=== PATIENT | female | born 1980 | race Caucasian/White ===

== ENCOUNTER → 2020-06-11 | Outpatient (CLI) | payer BC ==
[~2020-06-11] MED LIST: IBUP80TA PO; MAPA500T2 PO; VITAPRTA PO
--- NOTE | 2020-06-29 13:58 | REP ---
FIRST TRIMESTER OBSTETRICAL ULTRASOUND CLINICAL: Dating and viability. TECHNIQUE: Transabdominal obstetrical ultrasound with color Doppler evaluation. FINDINGS: Ultrasound examination demonstrates single live early intrauterine . Gestational sac with yolk sac and pole identified. Pump Back-rump length (CRL) of 12 mm corresponds to 7 weeks 3 days gestational age with estimated date of delivery 01/25/2021. heart rate (FHR) equals 141 beats per minute. A subchorionic hemorrhagic inferior to the gestational sac is identified measuring 25 x 19 x 31 mm. IMPRESSION: * Single live intrauterine measuring 7 weeks 3 days gestational age. Complete anatomical assessment should be performed at 19-20 weeks. * Moderate subchorionic hemorrhagic. MTDD
== END ==
LOC: M RAD 09:11
PROVIDERS: ATTEND Obstetrics & Gynecology
DX: O36.80X0 Pregnancy with inconclusive fetal viability, not applicable or unspecified (principal); Z3A.01 Less than 8 weeks gestation of pregnancy

== ENCOUNTER → 2020-09-06 | Outpatient (CLI) | payer BC ==
--- NOTE | 2020-09-06 14:25 | REP ---
INDICATION: ENCOUNTER FOR SUPRVSN OF NORMAL SECOND TRIMESTER. COMPARISON: None. TECHNIQUE: Multiple real-time ultrasonographic images. FINDINGS: There is a single intrauterine gestation in a transverse lie. The placenta is posterior, grade 1, without previa. The cervix measures 5.6 cm in length. The heart rate is 146 beats per minute. The composite ultrasound gestational age is 21 weeks 1 day with an NIRAV of 01/23/2021. Gestational age by the 1st ultrasound is 19 weeks 6 days with an NIRAV of 01/25/2021. Gestational age by LMP is 21 weeks 4 days with an NIRAV of 01/13/2021. Estimated weight is 330 g, 0 lb-11 oz. The following anatomic structures are identified and are unremarkable: Intracranial ventricles, choroid plexus, cerebellum, cisterna magna, facial profile, orbits, upper lip, lungs, cardiac rhythm, diaphragm, stomach, abdominal wall, right and left kidneys, bladder, spine, right and left upper extremities, right left lower extremities, 3 vessel cord. Suboptimally demonstrated because of position are: Four-chamber view of the heart and the cardiac right left ventricular outflow tracts. A follow-up study dedicated to the structures might be considered. IMPRESSION: Single intrauterine gestation as described. <Electronically signed by Jb Badillo > 09/06/20 [id number]
== END ==
LOC: M RAD 11:10
PROVIDERS: ATTEND Obstetrics & Gynecology
DX: Z34.82 Encounter for supervision of other normal pregnancy, second trimester (principal); Z3A.19 19 weeks gestation of pregnancy

== ENCOUNTER → 2020-10-04 | Outpatient (CLI) | payer BC ==
--- NOTE | 2020-10-04 11:05 | REP ---
INDICATION: F/U ANATOMY COMPARISON: 09/06/2020 TECHNIQUE: Transabdominal obstetrical ultrasound with color Doppler evaluation. FINDINGS: Examination demonstrates a single live intrauterine in breech presentation. motion is identified by technologist. Placenta is noted posterior and grade 1 without evidence for placenta previa or abruption. Amniotic fluid volume is normal. Cervix measures 4.7 cm in length and appears closed.. Gestational age by LMP 25 weeks 4 days with NIRAV 01/13/2021. Gestational age by current measurements 23 weeks 2 days with NIRAV 01/29/2021. FHR equals 150 beats per minute. Estimated weight 555 grams (12thpercentile based on age by 1st ultrasound at 23 weeks 6 days). Anatomical assessment demonstrates normal structures including cranium, facial profile, four-chamber heart/ventricular outflow tracts, diaphragm, stomach, kidneys, bladder and 3 vessel cord. IMPRESSION: Single live intrauterine in breech presentation demonstrating appropriate estimated weight and growth when compared with 1st ultrasound. In conjunction with prior examination anatomical assessment is complete and normal. <Electronically signed by Luis M Rehman > 10/04/20 [id number]
== END ==
LOC: M WHC 10:14
PROVIDERS: ATTEND Obstetrics & Gynecology
DX: Z36.9 Encounter for antenatal screening, unspecified (principal); Z3A.23 23 weeks gestation of pregnancy

== ENCOUNTER → 2020-11-06 | Outpatient (CLI) | payer BC ==
[2020-11-06 10:24] LABS: CHOLESTEROL RISK RATIO 4.454 (<5); THYROID STIMULATING HORMONE 1.79 uIU/ML (0.358-3.740)
== END ==
LOC: M LAB 08:35
PROVIDERS: ATTEND Internal Medicine Cardiovascular Disease
DX: R07.2 Precordial pain (principal); R00.2 Palpitations

== ENCOUNTER → 2020-11-06 | Outpatient (CLI) | payer BC ==
[2020-11-06 10:53] LABS: HEMATOCRIT 37.3 % (36.0-47.0); HEMOGLOBIN 11.8 g/dl (12.0-15.5); MEAN CORPUSCULAR HEMOGLOBIN 28.8 pg (27.0-33.0); MEAN CORPUSCULAR HGB CONC 31.6 g/dl (32.0-36.5); PLATELET COUNT, AUTOMATED 182 10^3/uL (150-450); WHITE BLOOD COUNT 6.6 10^3/uL (4.0-10.0)
== END ==
LOC: M LAB 08:37
PROVIDERS: ATTEND Obstetrics & Gynecology
DX: Z34.92 Encounter for supervision of normal pregnancy, unspecified, second trimester (principal)

== ENCOUNTER → 2020-11-14 | Outpatient (CLI) | payer BC ==
--- NOTE | 2020-11-20 15:57 | SLEEPHOME ---
DATE: 11/14/2020 ORDERED BY: Dr. Berg Diagnostic home sleep testing was performed due to concern for the obstructive sleep apnea syndrome. For testing, a nocturnal T3 respiratory monitoring device was used. Continuous record was made of pulse, oxygen saturation, air flow, chest and abdominal strain, and body position. There was 11 hours and 59 minutes of data reviewed. There was 7 hours and 18 minutes marked as time in bed. During the interval marked time in bed, there were 146 respiratory events identified of 10 seconds in duration or greater for a respiratory event index of 20. The events were primarily obstructive. Four mixed and central apneas were noted. Baseline pulse rate was 74. Pulse rate ranged between 60-109. Baseline saturation was 95%. Saturations fell as low as 78%, and the oxygen desaturation index was 10.5. Events were seen in both the supine and nonsupine positions. IMPRESSION: Abnormal home sleep testing with repetitive respiratory events and oxygen desaturations to 78% with a respiratory event index of 20 is consistent with the obstructive sleep apnea syndrome. RECOMMENDATION: The patient should be encouraged to undergo referral for formal sleep evaluation.
== END ==
LOC: M SLEEP HO 10:06
PROVIDERS: ATTEND Internal Medicine Cardiovascular Disease
DX: G47.33 Obstructive sleep apnea (adult) (pediatric) (principal)

== ENCOUNTER → 2020-11-26 | Outpatient (CLI) | payer BC | LOC: M LAB 08:05 | PROVIDERS: ATTEND Obstetrics & Gynecology | DX: R73.02 Impaired glucose tolerance (oral) (principal) ==

== ENCOUNTER 2021-01-04 15:19 | Emergency (ER) | payer BC ==
[~2021-01-04] VITALS: Ht 157.5 cm; Wt 112.6 kg
[2021-01-04 15:20] VITALS: BP 160/85
== END 2021-01-04 15:40 | disposition admitted as inpatient to this hospital (09) ==
LOC: M ED 15:19
DX: Z53.29 Procedure and treatment not carried out because of patient's decision for other reasons (principal)

== ENCOUNTER 2021-01-04 15:48 | Outpatient (CLI) | payer BC ==
[~2021-01-04] VITALS: Ht 157.5 cm; Wt 112.0 kg
[2021-01-04 16:30] VITALS: BP 138/90
[2021-01-04 16:47] VITALS: BP 132/88
[2021-01-04 16:52] VITALS: BP 138/90
[2021-01-04 17:15] VITALS: BP 132/88
[2021-01-04 17:30] LABS: HEMATOCRIT 37.6 % (36.0-47.0); HEMOGLOBIN 12.2 g/dl (12.0-15.5); MEAN CORPUSCULAR HGB CONC 32.4 g/dl (32.0-36.5); MEAN CORPUSCULAR VOLUME 89.3 fl (80.0-96.0); PLATELET COUNT, AUTOMATED 159 10^3/uL (150-450); RED BLOOD COUNT 4.21 10^6/uL (4.00-5.40); WHITE BLOOD COUNT 7.3 10^3/uL (4.0-10.0)
[2021-01-04 17:50] VITALS: BP 115/72
[2021-01-04 17:56] LABS: CREATININE,RANDOM URINE 21.9 MG/DL; TOTAL PROTEIN,RANDOM URINE 6.3 MG/DL (0.0-12.0)
[2021-01-04 17:57] LABS: ALT/SGPT 20 U/L (12-78); BILIRUBIN,TOTAL 0.2 MG/DL (0.2-1.0); CREATININE FOR GFR 0.41 MG/DL (0.55-1.30); GLOMERULAR FILTRATION RATE > 60.0 (>60); LDH LACTATE DEHYDROGENASE 163 U/L (84-246); URIC ACID 3.4 MG/DL (2.6-6.0)
--- NOTE | 2021-01-04 18:21 | IPNPDOC ---
Text Note Date of Service The patient was seen on 01/04/21. NOTE Outpatient 40yo NIRAV 01/25/2021. Presents @ 37 wks with complaints of lower extremity edema. Denies headache, visual disturbances, chest pain, SHEY. Reports good movement. 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 No distress, normotensive Cat I tracing 2+ pitting edema to knees Labs WNL, urine ratio 0.28 Reviewed status with patient. Discharged home. Rec she wear compression stockings at work, rest side lying BID. Pt verbalized understanding. Keep next appt VS,Fishbone, I+O VS, Fishbone, I+O Laboratory Tests 01/04/21 17:18 Vital Signs Date Time Temp Pulse Resp B/P (MAP) Pulse Ox O2 Delivery O2 Flow Rate FiO2 01/04/21 17:50 64 18 115/72 (86) 01/04/21 16:30 99.3 99 Room Air Esperanza Sadler CNM Jan 04, 2021 18:21
== END 2021-01-04 18:35 | disposition home or self-care (01) ==
LOC: M LDO 15:48
PROVIDERS: ATTEND Advanced Practice Midwife
DX: O26.893 Other specified pregnancy related conditions, third trimester (principal); R03.0 Elevated blood-pressure reading, without diagnosis of hypertension; Z3A.37 37 weeks gestation of pregnancy; R22.43 Localized swelling, mass and lump, lower limb, bilateral; O09.523 Supervision of elderly multigravida, third trimester
CPT/HCPCS: 36415; 59025; 82247; 82565; 82570; 83615; 84156; 84450; 84460; 84550; 85027; G0378; G0463

== ENCOUNTER → 2021-01-10 | Outpatient (REF) | payer BC | LOC: M LAB REF 15:38 | PROVIDERS: ATTEND Advanced Practice Midwife | DX: Z36.89 Encounter for other specified antenatal screening (principal) ==

== ENCOUNTER → 2021-01-16 | Outpatient (CLI) | payer BC ==
[2021-01-16 10:38] LABS: ALBUMIN 2.7 GM/DL (3.2-5.2); BLOOD UREA NITROGEN 12 MG/DL (7-18); CALCIUM LEVEL 8.8 MG/DL (8.5-10.1); CARBON DIOXIDE LEVEL 21 MEQ/L (21-32); CHLORIDE LEVEL 104 MEQ/L (98-107); GLOMERULAR FILTRATION RATE > 60.0 (>60); GLUCOSE, FASTING 105 MG/DL (70-100); PHOSPHORUS LEVEL 2.9 MG/DL (2.5-4.9); SODIUM LEVEL 137 MEQ/L (136-145)
[2021-01-16 10:39] LABS: MAGNESIUM LEVEL 1.9 MG/DL (1.8-2.4)
== END ==
LOC: M LAB 09:17
PROVIDERS: ATTEND Internal Medicine Cardiovascular Disease
DX: R60.0 Localized edema (principal)

== ENCOUNTER 2021-01-26 18:18 | Inpatient (IN) | payer BC ==
[2021-01-26] VITALS (11 sets, daily range): BP systolic 107–152; BP diastolic 52–73
[~2021-01-26] VITALS: Ht 157.5 cm; Wt 106.1 kg
[2021-01-26] MEDS ORDERED: CHLO125TA PO (18:37)
[2021-01-26] MEDS ORDERED: LABE100T4 PO (18:37)
[2021-01-26] MEDS ORDERED: POTA10CA32 PO ×2 (18:37)
[2021-01-26] MEDS ORDERED: TUMS750C5 PO (18:40)
[2021-01-26] MEDS ORDERED: LACTATED RINGER'S 1000 ML IV STA (18:41)
[2021-01-26] MEDS ORDERED: LR 1,000 ML IV SCH (18:45)
[2021-01-26] MEDS ORDERED: LIDOCAINE 1% MDV 50ML VIAL As Ordered ONE (18:56)
[2021-01-26] MEDS ORDERED: ACETAMINOPHEN 500 MG TAB PO PRN (19:15)
[2021-01-26] MEDS ORDERED: DIBUCAINE 1% OINTMENT 30GM TOP PRN (19:15)
[2021-01-26] MEDS ORDERED: MEASLES,MUMPS,RUBELLA VACCINE INJ (MMR-II) (90707) SC SCH (19:15)
[2021-01-26] MEDS ORDERED: PROMETHAZINE 25 MG TAB PO PRN (19:15)
[2021-01-26] MEDS ORDERED: ACETAMINOPHEN TAB 650MG DOSE (2X325MG) PO PRN (19:15)
[2021-01-26] MEDS ORDERED: METHYLERGONOVINE MALEATE 0.2 MG TAB PO PRN (19:15)
[2021-01-26] MEDS ORDERED: IBUPROFEN 600MG TAB PO PRN (19:15)
[2021-01-26] MEDS ORDERED: DOCUSATE SODIUM 100MG CAPSULE PO PRN (19:15)
[2021-01-26] MEDS ORDERED: RHOGAM 300 MCG (1500 IU) INJ (J2790) IM SCH (19:15)
--- NOTE | 2021-01-26 19:22 | HPEPDOC ---
Obstetrical History & Physical General Date of Admission January 26, 2021 at 18:43 History of Present Illness 41-year-old G2, P1001 at 40+0 weeks gestation. Presents with frequent, painful uterine contractions over the past several hours. Denies any loss of fluid or vaginal bleeding. Reports regular movement. ROS: no CONTE, cp, sob, fever/chills/nausea/vomiting. course: Advanced maternal age PMH: None SH:. 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 STI or dysplasia OB: G1 March 2018, 39+5 weeks gestation, , uncomplicated Sochx: No tobacco, alcohol or drug use FamHx: Heart disease, hypertension, nephrolithiasis labs: Blood type, a positive, antibody screen negative, HepBsAg neg, HIV neg, rubella immune, Hep C antibody negative, RPR nonreactive, CT/GC neg, urine culture negative, 1 hour glucose challenge test 151, 3 hour: 92, and 199, 173, 130 within normal limits, GBS negative imaging: no anomalies or placental abnormalities Past Medical History Allergies Coded Allergies: No Known Allergies (Unverified , 07/02/15) Medications Scheduled Chlorthalidone (Chlorthalidone) 25 Mg Tablet, 12.5 TAB PO DAILY Labetalol HCl (Labetalol HCl) 100 Mg Tablet, 1 TAB PO BID Multivit/Min/Pren/Fol Ac/Iron ( Vitamin Plus Low Iron) 1 Tab Tab, 1 TAB PO DAILY Potassium Chloride (Potassium Chloride) 10 Meq Capsule.er, 1 CAP PO BID Scheduled PRN Acetaminophen (Mapap) 500 Mg Tab, 1,000 MG PO Q6HP PRN for MILD PAIN (PS 1-4) Calcium Carbonate (Tums) 300 Mg Tab.chew, 750 MG PO Q6HP PRN for INDIGESTION Physical Examination Physical Examination GENERAL: Alert and oriented times three. ABDOMEN: Gravid and non-tender to touch. FETUS: Is vertex (VTX) by sterile vaginal examination (SVE), fetus is vertex (VTX) by Abad. HEART RATE: Regular rate and rhythm. LUNGS: Clear to auscultation (CTA). EXTREMITIES: No edema. No clonus. SVE: 10cm, 100%, +2 station, bulging membranes. EFM: Cat I [place]: ctxs every 2-4min. Laboratory Data 24H LABS Laboratory Tests 2 01/26/21 18:52: Serology Scanned Report Hepatitis B Testing Assessment/Plan Assessment 41yo at 40+0 weeks. Active labor/second stage. Reassuring maternal and status. Plan Admit and orient. Drug Purchaser and consent. Labs and intravenous (IV) per unit protocol. Anticipate GLENROY SIERRA DO January 26, 2021 19:22
[2021-01-26] MEDS ORDERED: OXYTOCIN INJ 10 UNITS/ML VIAL (J2590) IM PRN (19:25)
[2021-01-26] MEDS ORDERED: LIDOCAINE 1% MDV 20ML VIAL INFIL PRN (19:25)
--- NOTE | 2021-01-26 19:30 | DNPDOC ---
[facility] Delivery Note Delivery Note DATE OF DELIVERY: 01/26/2021 TIME OF DELIVERY: 1851 Spontaneous vaginal delivery. TECHNICAL MGR: Dr. Humble Tamez DO FACOG ANESTHESIA: 1% lidocaine local LACERATION: Second-degree ESTIMATED BLOOD LOSS: 300 mL. FINDINGS: 7 pound 9 ounce (3430g) Male , Score 8 and 9. DELIVERY SUMMARY: The active phase and second stage of labor progressed in normal fashion. The head delivered in the DARÍO position, and restituted LOT. No nuchal cord was noted. The anterior shoulder delivered with gentle downward guidance and the remainder of the body delivered with ease. The baby was placed on the patient's chest. Delayed cord clamping occurred for approximately 1 minute. The cord was then doubly clamped and cut. IV Pitocin was bolused to actively manage the third stage of labor. The placenta delivered intact without any difficulty within 10 minutes of delivery. The uterine fundus was noted to be firm and 2 cm below the umbilicus. The cervix, vagina, vulva and perineum were inspected. A second-degree laceration was noted and immediately repaired with 3-0 Vicryl in typical fashion. Excellent hemostasis was noted. Sponge, needle and instrument counts were correct per protocol. DO KORTNEY Benavidez JONATHAN R. DO January 26, 2021 19:30
[2021-01-26 20:19] LABS: HEMATOCRIT 40.4 % (36.0-47.0); HEMOGLOBIN 13.1 g/dl (12.0-15.5); MEAN CORPUSCULAR HEMOGLOBIN 28.9 pg (27.0-33.0); MEAN CORPUSCULAR HGB CONC 32.4 g/dl (32.0-36.5); MEAN CORPUSCULAR VOLUME 89.2 fl (80.0-96.0); PLATELET COUNT, AUTOMATED 152 10^3/uL (150-450); RED BLOOD COUNT 4.53 10^6/uL (4.00-5.40); WHITE BLOOD COUNT 11.6 10^3/uL (4.0-10.0)
[2021-01-26] MEDS ORDERED: OXYTOCIN INJ 10 UNITS/ML VIAL (J2590) IV ONE (20:20)
[2021-01-26] MEDS ORDERED: OXYTOCIN DRIP 30 UNITS in IV 1 EA IV ONE (20:35)
[2021-01-27] MEDS: IBUPROFEN 800 MG TAB PO PRN ×2 (00:27→14:21)
[2021-01-27 05:56] VITALS: BP 115/65
--- NOTE | 2021-01-27 08:06 | IPNPDOC ---
Progress Note Date of Service: January 27, 2021 Day#: 1 Progress Note SUBJECT: Status post . She has been ambulating, voiding spontaneously without issue and tolerating regular diet. Lochia decreasing/minimal. Pain is well-controlled. Denies headache, visual changes, right upper quadrant pain, shortness breath or chest pain. OBJECTIVE: VITAL SIGNS: Within normal limits, afebrile. Alert and oriented times three. Abdomen: Fundus firm at U-2. Soft, NTTP. ASSESSMENT: Status post uncomplicated spontaneous vaginal delivery. Vitals within normal limits, afebrile, hemodynamically stable with no evidence of infection. PLAN: Discharge to home today or tomorrow Tylenol and Motrin for pain. Routine instructions/precautions reviewed. Routine PP visit in 6 weeks in clinic. VS, I&O, 24H, Fishbone Vital Signs/I&O Vital Signs Date Time Temp Pulse Resp B/P (MAP) Pulse Ox O2 Delivery O2 Flow Rate FiO2 01/27/21 05:56 97.7 72 18 115/65 (82) I&O- Last 24 Hours up to 6 AM 01/27/21 06:00 Intake Total 1200 ml Output Total 600 ml Balance 600 ml Laboratory Data 24H LABS Laboratory Tests 2 01/26/21 18:52: Serology Scanned Report Hepatitis B Testing 01/26/21 20:00: Nucleated Red Blood Cells % (auto) 0.0 CBC/BMP Laboratory Tests 01/26/21 20:00 GELNROY SIERRA DO January 27, 2021 08:06
[2021-01-27] MEDS: PRENATAL VITAMINS CHEWABLE TABLET PO SCH (09:14)
[2021-01-27 18:00] VITALS: BP 134/60
[2021-01-28 06:00] VITALS: BP 133/60
[2021-01-28] MEDS ORDERED: BOOSTRIX/ADACEL VACCINE (DIPHTH/PERTUSS/ACELL/TETANUS) 0.5ML SYR IM ONE (09:00)
[2021-01-28] MEDS: PRENATAL VITAMINS CHEWABLE TABLET PO SCH (09:11)
== END 2021-01-28 12:15 | disposition home or self-care (01) | DRG 560 ==
LOC: M LDO 18:18 → M LDI 18:43 → M OBS 21:50
PROVIDERS: ADMIT Obstetrics & Gynecology; ATTEND Obstetrics & Gynecology
PROC: 10E0XZZ Delivery of Products of Conception, External Approach (ICD-10-PCS; principal; 2021-01-26)
PROC: 0KQM0ZZ Repair Perineum Muscle, Open Approach (ICD-10-PCS; 2021-01-26)
DX: O70.1 Second degree perineal laceration during delivery (principal); Z3A.40 40 weeks gestation of pregnancy; Z37.0 Single live birth

== ENCOUNTER → 2021-03-22 | Outpatient (CLI) | payer BC ==
[~2021-03-22] MED LIST changes: +CHLO125TA PO; +LABE100T4 PO; +POTA10CA32 PO; +TUMS750C5 PO
== END ==
LOC: M LAB 08:10
PROVIDERS: ATTEND Obstetrics & Gynecology
DX: O24.410 Gestational diabetes mellitus in pregnancy, diet controlled (principal)

== ENCOUNTER → 2023-07-27 | Outpatient (CLI) | payer BC ==
[~2023-07-27] MED LIST changes: -LABE100T4 PO; +LABE100T6 PO; -POTA10CA32 PO; +POTA10CA60 PO
[2023-07-27 16:14] LABS: HEMATOCRIT 42.3 % (36.0-47.0); HEMOGLOBIN 13.4 g/dl (12.0-15.5); MEAN CORPUSCULAR HEMOGLOBIN 29.1 pg (27.0-33.0); MEAN CORPUSCULAR HGB CONC 31.7 g/dl (32.0-36.5); WHITE BLOOD COUNT 8.3 10^3/uL (4.0-10.0)
== END ==
LOC: M PLALAB 12:41
PROVIDERS: ATTEND Obstetrics & Gynecology
DX: N93.9 Abnormal uterine and vaginal bleeding, unspecified (principal)

== ENCOUNTER → 2023-08-05 | Outpatient (CLI) | payer BC | LOC: M WHC 14:31 | PROVIDERS: ATTEND Obstetrics & Gynecology | DX: D25.9 Leiomyoma of uterus, unspecified (principal) ==

== ENCOUNTER → 2023-11-30 | Outpatient (REF) | payer BC | LOC: M SFHCWAGY 08:00 | PROVIDERS: ATTEND Obstetrics & Gynecology | DX: Z12.4 Encounter for screening for malignant neoplasm of cervix (principal) | CPT/HCPCS: 87624; G0123 ==

== ENCOUNTER → 2024-02-29 | Outpatient (CLI) | payer BC ==
[~2024-02-29] MED LIST changes: -POTA10CA60 PO; +POTA10CA70 PO
== END ==
LOC: M WHC 14:57
PROVIDERS: ATTEND Obstetrics & Gynecology
DX: Z12.31 Encounter for screening mammogram for malignant neoplasm of breast (principal)

== ENCOUNTER → 2024-12-21 | Outpatient (CLI) | payer BC ==
[2024-12-23 15:12] LABS: HPV APTIMA Not Detected (Not Detected)
== END ==
LOC: M PLAIMG 11:27
PROVIDERS: ATTEND Obstetrics & Gynecology
DX: Z12.4 Encounter for screening for malignant neoplasm of cervix (principal); T83.32XA Displacement of intrauterine contraceptive device, initial encounter
CPT/HCPCS: 72170; 87624; G0123

== ENCOUNTER → 2025-04-24 | Outpatient (CLI) | payer BC | LOC: M WHC 16:30 | PROVIDERS: ATTEND Obstetrics & Gynecology | DX: Z12.31 Encounter for screening mammogram for malignant neoplasm of breast (principal); R92.313 Mammographic fatty tissue density, bilateral breasts ==